=== PATIENT | female | born 1950 | race Caucasian/White ===

== ENCOUNTER → 2017-12-29 | Outpatient (CLI) | payer OTHER | END | disposition home or self-care (01) | LOC: LAB SHORT 16:06 → LAB EV 16:06 | DX: N39.0 Urinary tract infection, site not specified (principal) | CPT/HCPCS: 87077; 87086; 87186 ==

== ENCOUNTER 2019-03-12 08:44 | Day surgery (SDC) | payer OTHER ==
[~2019-03-12] VITALS: Ht 149.9 cm; Wt 70.4 kg
[~2019-03-12 08:44] MED LIST: DILT180ER PO; LOSA50 PO
== END 2019-03-12 12:19 | disposition home or self-care (01) ==
LOC: ORSCSDS 08:44
PROVIDERS: Internal Medicine Gastroenterology
PROC: 0DBL8ZX Excision of Transverse Colon, Via Natural or Artificial Opening Endoscopic, Diagnostic (ICD-10-PCS; principal; 2019-03-12 10:00)
PROC: 0DBK8ZX Excision of Ascending Colon, Via Natural or Artificial Opening Endoscopic, Diagnostic (ICD-10-PCS; principal; 2019-03-12 10:00)
DX: Z12.11 Encounter for screening for malignant neoplasm of colon (principal); D12.3 Benign neoplasm of transverse colon; D12.2 Benign neoplasm of ascending colon; K57.30 Diverticulosis of large intestine without perforation or abscess without bleeding; E66.9 Obesity, unspecified; Z68.30 Body mass index [BMI] 30.0-30.9, adult; F17.210 Nicotine dependence, cigarettes, uncomplicated; Z79.899 Other long term (current) drug therapy
CPT/HCPCS: 88305; J2704; J7120

== ENCOUNTER 2023-02-20 08:49 | Day surgery (SDC) | payer OTHER ==
[~2023-02-20] VITALS: Ht 149.9 cm; Wt 71.6 kg
[2023-02-20] MEDS ORDERED: PRAV20 (09:16)
[2023-02-20] MEDS ORDERED: CENTRUM SILVER1 EAC2 (09:16)
[2023-02-20] MEDS ORDERED: COLLAGEN SKIN1 EACH (09:16)
[2023-02-20] MEDS ORDERED: MAGCHL64ER (09:16)
[2023-02-20] MEDS ORDERED: Vitamin B-1250 MC1 (09:16)
[2023-02-20] MEDS ORDERED: TOCO1000 (09:16)
[2023-02-20] MEDS ORDERED: TUMERIC (09:17)
[2023-02-20 11:11] VITALS: BP 145/81
== END 2023-02-20 11:10 | disposition home or self-care (01) ==
LOC: ORSCSDS 08:49
PROVIDERS: Internal Medicine Gastroenterology
PROC: 0DBM8ZX Excision of Descending Colon, Via Natural or Artificial Opening Endoscopic, Diagnostic (ICD-10-PCS; principal; 2023-02-20 10:00)
PROC: 0DBK8ZX Excision of Ascending Colon, Via Natural or Artificial Opening Endoscopic, Diagnostic (ICD-10-PCS; principal; 2023-02-20 10:00)
DX: Z12.11 Encounter for screening for malignant neoplasm of colon (principal); Z86.010 Personal history of colon polyps; D12.2 Benign neoplasm of ascending colon; K63.5 Polyp of colon; K57.30 Diverticulosis of large intestine without perforation or abscess without bleeding; F17.210 Nicotine dependence, cigarettes, uncomplicated; Z79.899 Other long term (current) drug therapy
CPT/HCPCS: 88305; J2704; J7120